=== PATIENT | female | born 2000 | race Caucasian/White ===

== ENCOUNTER 2024-05-21 20:59 | Emergency (ER) | payer OTHER, SELFPAY ==
--- NOTE | 2024-05-21 21:03 | XRR_ITS ---
PROCEDURE INFORMATION: Exam: XR Right Elbow Exam date and time: 05/21/2024 9:05 PM Age: 23 years old Clinical indication: Injury or trauma; Other: Bumped RT elbow TECHNIQUE: Imaging protocol: Radiologic exam of the right elbow. Views: 3 or more views. COMPARISON: No relevant prior studies available. FINDINGS: Bones/joints: Normal. Soft tissues: Normal. XR/XR elbow RT min 3V* [id number] IMPRESSION: No acute findings.
[2024-05-21 21:06] VITALS: BP 112/77; PULSE 75; RESP 14; TEMP 36.6; O2SAT 98; BMI 19.5
--- NOTE | 2024-05-21 21:21 | ED_ITS ---
HPI - Extremity Problem General: Chief complaint: Extremity Injury, Upper Stated complaint: right elbow injury Time Seen by Provider: 05/21/24 21:04 Source: patient Mode of arrival: ambulatory Limitations: no limitations History of Present Illness: 23-year-old female states that she had s lammed her right elbow down on a freezer door yesterday states she has been having some pain over her elbow since then. She has no pain at rest but has pain with palpation and extension has had some slight tingling down her fingers. Denies any other injuries. Associated symptoms: Deny chest pain, fever(s) or rash Review of Systems Const: Denies: fever(s), chills, body aches or change in appetite ENMT: Denies: throat pain or dental pain Card: Denies: chest pain Resp: Denies: dyspnea GI: Denies: abdominal pain, nausea, vomiting or diarrhea Musc: Reports: extremity pain; Denies: neck pain or back pain Skin/Breast: Denies: rash [facility] ED Female Reproductive History: Date of last menstrual period: 05/17/24 Physical Exam Const: COMMON NORMALS: no acute distress, patient oriented x3 and healthy appearing HENMT: COMMON NORMALS: normocephalic and atraumatic HEAD & SCALP: normocephalic and atraumatic Eye: COMMON NORMALS: conjunctivae normal CONJUNCTIVA: Yes conjunctivae normal Neck/C-Spine: COMMON NORMALS: full ROM and supple Chest: COMMONS NORMALS: normal inspection of the chest Resp: COMMON NORMALS: normal respiratory effort Extremity: COMMON NORMALS: full ROM NARRATIVE EXTREMITY EXAM: Slight tenderness over right elbow no obvious deformity distal pulses sensation intact Neuro: COMMON NORMALS: patient oriented x3, moves all extremities and no focal motor deficits Psych: COMMON NORMALS: mental status grossly normal, Normal thought process present and cooperative THOUGHT PROCESS: Normal thought process present Skin: COMMON NORMALS: no rashes or lesions noted and no wounds GENERAL SKIN EXAM: no rashes or lesions noted Course Vital Signs: Vital signs: Vital Signs Temperature 98 F 05/21/24 21:06 Pulse Rate 75 05/21/24 21:06 Respiratory Rate 14 05/21/24 21:06 Blood Pressure 112/77 05/21/24 21:06 Pulse Oximetry 98 05/21/24 21:06 Oxygen Delivery Me thod Room Air 05/21/24 21:06 MDM - Extremity (Nontraumatic) Medical Decision Making Patient presents here with right elbow pain is likely contusion x-ray shows no fracture exam is benign she stable for discharge follow-up PCP return if worsening Medical Records I reviewed the patient's medical records. XR interpretation done by ED provider, pending radiology final review ED provider radiology interpretation(s): xr r elbow: no acute abnormality Discharge Plan Discharge Patient Disposition: Home Clinical Impression: Contusion of elbow, right Qualifiers: Encounter type: initial encounter Qualified Code(s): S50.01XA - Contusion of right elbow, initial encounter Condition: Stable Discharge Orders: Discharge ED (Routine); Ordered 05/21/24 Ordered By: Deejay Jerome Discharge Diet: Advance as tolerated Discharge Activity: Resume usual activity Patient Instructions: Contusion in Adults (ED) Coding Level of Care Code ED Director Of Advertising Sales for Thomas Irene
== END 2024-05-21 21:24 | disposition home or self-care (01) ==
PROVIDERS: Emergency Provider Emergency Medicine
DX: S50.01XA Contusion of right elbow, initial encounter (principal); W22.8XXA Striking against or struck by other objects, initial encounter
CPT/HCPCS: 73080; 99283